=== PATIENT | male | born 1950 | race Caucasian/White ===

== ENCOUNTER → 2016-11-02 | Outpatient (CLI) | payer OTHER ==
[~2016-11-02] MED LIST: ACETAMIN-CODE12.5 ML; AMLODIPINE BESY10 MG PO; ATORVASTATIN CA80 MG PO; CHLORTHALIDONE25 MG PO; GLIPIZIDE ER10 MG; LISINOPRIL30 MG PO; METFORMIN HCL1000 M1 PO; METOPROLOL SUCC50 MG PO; OMEPRAZOLE20 M2 PO
--- NOTE | ~2016-11-02 | US77 ---
[facility] A Service of [facility] & [facility] RADIOLOGY TEXT RESULTS PATIENT: TOMAS MEDRANO LOCATION: [facility] : 50 UNIT #: [id number] AGE: [address]: Abad Leonard MD SEX: M ORDER DR: [id number] [facility] [address]. [place], [place] [address] [id number] O MR#: [id number] Acc #: [id number] NAME: TOMAS MEDRANO. : 1950 SEX: M STUDY DATE/TIME: 11/02/2016 14:06 UNIT: [facility] ROOM: STUDY DESCRIPTION: US Kidney Bilateral Complete Attending Physician: Abad Leonard M.D. Referring Physician: Abad Leonard M.D. Ordering Physician: Abad Leonard M.D. Primary Care Physician: Joss Durbin M.D. MEDICAL IMAGING REPORT This report is preliminary unless electronic signature is present EXAM Renal ultrasound INDICATIONS Urinary stones. These were identified on a CT performed 09/06/2016. On that study the patient had a left-sided distal ureteral stone with associated hydronephrosis. TECHNIQUE Oates-scale and color Doppler sonographic images were obtained through the kidneys and bladder. FINDINGS Both kidneys are normal in appearance. No solid or cystic renal masses are seen and no hydronephrosis is identified. Patient does have a history of a right renal stone. However, this cannot be seen on the current study. No hydronephrosis is seen on the left. Patient's urinary bladder appears unremarkable. IMPRESSION 1. Interval resolution of left-sided hydronephrosis. 2. Patient does have a known nonobstructing stone on the right which cannot be seen on these images Dictated by... Fabi Cruz M.D. THIS IS AN ELECTRONICALLY VERIFIED REPORT Fabi Cruz M.D. at 11/05/2016 4:54 PM AFF/rnr TD: 11/02/2016 22:52 JOB #: [id number] [facility] A Service of [facility] & [facility] RADIOLOGY TEXT RESULTS PATIENT: TOMAS MEDRANO LOCATION: [facility] #: [id number] : 50 UNIT #: [id number] AGE: [address]: Abad Leonard MD SEX: M ORDER DR: MEDICAL IMAGING REPORT Page 1 of 1 COPY
== END | disposition home or self-care (01) ==
LOC: CGUS 13:33
DX: N20.1 Calculus of ureter (principal)
CPT/HCPCS: 76770